=== PATIENT | female | born 1945 | race Caucasian/White ===

== ENCOUNTER 2019-06-13 06:48 | Day surgery (SDC) | payer OTHER ==
[~2019-06-13] VITALS: Ht 162.6 cm; Wt 85.3 kg
[2019-06-13] MEDS ORDERED: GLYCOPYRROLATE 0.2 MG/ML VIAL IJ ONE (08:57)
[2019-06-13] MEDS ORDERED: ROCURONIUM BROMIDE 10 MG/ML (ZEMURON) IV ONE (08:57)
[2019-06-13] MEDS ORDERED: WATER FOR IRRIGATION,STERILE 1,000 ML IRRIG.SOLN IR ONE (08:57)
[2019-06-13] MEDS ORDERED: SEVOFLURANE 15 MIN GAS INH ONE (08:57)
[2019-06-13] MEDS ORDERED: LEVOFLOXACIN 500 MG/D5W 100 ML PIGGYBACK IV ONE (08:57)
[2019-06-13] MEDS ORDERED: EPINEPHrine 1 MG/ML AMP IM ONE (08:57)
[2019-06-13] MEDS ORDERED: MIDAZOLAM HCL 5 MG/5 ML VIAL IVP ONE (08:57)
[2019-06-13] MEDS ORDERED: LIDOCAINE/EPI 1% 1:100000 20 ML VIAL INJ ONE (08:57)
[2019-06-13] MEDS ORDERED: DEXAMETHASONE SOD PHOSPHATE 4 MG/ML VIAL IVP ONE (08:57)
[2019-06-13] MEDS ORDERED: LR 1,000 ML IV.SOLN IV ONE (08:57)
[2019-06-13] MEDS ORDERED: PROPOFOL 200MG/ 20ML VIAL (DIPRIVAN) IV ONE (08:57)
[2019-06-13] MEDS ORDERED: NS IRRIG SOLN 1000 ML IR ONE (08:57)
[2019-06-13] MEDS ORDERED: fentaNYL CITRATE/PF 100 MCG/2 ML AMP IVP ONE (08:57)
[2019-06-13] MEDS ORDERED: LR 1,000 ML IV SCH (09:18)
[2019-06-13] MEDS ORDERED: ONDANSETRON HCL 4 MG/2 ML VIAL IVP PRN (09:30)
[2019-06-13] MEDS ORDERED: METOCLOPRAMIDE HCL 10 MG/2 ML VIAL IVP PRN (09:30)
[2019-06-13] MEDS ORDERED: HYDROmorphone 1 MG INJ. 1 MG/ML AMPUL IVP PRN ×2 (09:30)
[2019-06-13] MEDS ORDERED: ePHEDrine sulfate 50 MG/ML VIAL IVP PRN (09:30)
[2019-06-13] MEDS ORDERED: hydrALAZINE HCL 20 MG/ML VIAL IVP PRN (09:30)
[2019-06-13] MEDS ORDERED: HYDROmorphone 1 MG INJ. 1 MG/ML AMPUL ONE (11:28)
[2019-06-13] MEDS ORDERED: ONDANSETRON HCL 4 MG/2 ML VIAL ONE (11:31)
[2019-06-13] MEDS ORDERED: METOCLOPRAMIDE HCL 10 MG/2 ML VIAL ONE (11:58)
[2019-06-13 14:09] VITALS: BP_SYST 121
== END 2019-06-13 13:05 | disposition home or self-care (01) ==
LOC: SDS 06:48 → SMU 06:48 → SDS 13:05
PROVIDERS: ATTEND Otolaryngology
DX: J32.0 Chronic maxillary sinusitis (principal); J34.89 Other specified disorders of nose and nasal sinuses; J32.2 Chronic ethmoidal sinusitis; D38.5 Neoplasm of uncertain behavior of other respiratory organs; E03.9 Hypothyroidism, unspecified; M35.01 Sjogren syndrome with keratoconjunctivitis; N95.1 Menopausal and female climacteric states; I10 Essential (primary) hypertension; K21.9 Gastro-esophageal reflux disease without esophagitis; M06.9 Rheumatoid arthritis, unspecified; F41.9 Anxiety disorder, unspecified; Z88.5 Allergy status to narcotic agent; Z79.899 Other long term (current) drug therapy; Z90.710 Acquired absence of both cervix and uterus; Z98.890 Other specified postprocedural states
CPT/HCPCS: 30140; 30520; 31255; 31267; 31298; 87070; 87075; 87101; 88305; 88311; C1726; J1170; J2405; J2765; J7120; J0171; J1100; J1956; J2250; J2704; J3010; J3490